=== PATIENT | male | born 1955 ===

== ENCOUNTER 2021-05-22 20:53 | Emergency (ER) | payer SELFPAY ==
[~2021-05-22] VITALS: Ht 180.3 cm; Wt 86.0 kg
--- NOTE | 2021-05-22 21:03 | NUR ---
PT BIB EMS FOR SWELLING TO HIS RIGHT JAW AND INTO HIS THROAT. PATENT AIRWAY. PT SAYS THE SYMPTOMS STARTED 2 DAYS AGO. HE WENT TO AND WAS GIVEN PREDNISONE AND A DOSE OF AMOX. PT DENIES TRAUMA. RESTING IN [facility]. BLANKET PROVIDED
[2021-05-22] MEDS ORDERED: KETOROLAC 30 MG/1 ML ONE (21:35)
[2021-05-22] MEDS ORDERED: HYDROmorphone 1 MG/ML, 1ML INJ ONE (21:36)
[2021-05-22 22:00] LABS: BASOPHILS % (AUTO) 1 % (0-1); EOSINOPHILS % (AUTO) 2 % (1-7); LYMPHOCYTES % (AUTO) 15 % (22-44); MEAN CORPUSCULAR HEMOGLOBIN 31.7 pg (27.5-34.5); MEAN CORPUSCULAR HGB CONC 34.3 g/dL (33.2-36.2); MEAN PLATELET VOLUME 7.5 fL (7.4-10.4); MONOCYTES % (AUTO) 11 % (2-9); NEUTROPHILS % (AUTO) 72 % (42-75); PLATELET COUNT 233 x10^3/uL (130-400); RED BLOOD COUNT 5.02 x10^6/uL (4.38-5.82); RED CELL DISTRIBUTION WIDTH 14.1 % (9.4-14.8)
[2021-05-22] MEDS ORDERED: HYDROmorphone 1 MG/ML, 1ML INJ IVPush PRN (22:00)
[2021-05-22 22:07] LABS: ALBUMIN 3.5 g/dL (3.4-5.0); ANION GAP 7 mmol/L (5-15); CALCIUM 8.8 mg/dL (8.5-10.1); CHLORIDE 107 mmol/L (98-107); CREATININE 0.82 mg/dL (0.7-1.3)
[2021-05-22] MEDS ORDERED: SODIUM CHLORIDE FLUSH 10ML SYR IVF ONE (22:30)
[2021-05-22] MEDS ORDERED: KETOROLAC 30 MG/1 ML IVPush ONE (22:30)
--- NOTE | 2021-05-22 22:55 | NUR ---
REPORT RECIEVED FROM PETEY ISABEL. PT STACIE IN [facility], NO S/S OF DISTRESS
[2021-05-23 01:07] VITALS: BP 111/64
[2021-05-23] MEDS ORDERED: OMNIPAQUE 350 MG/ML, 100ML BOTTLE ONE (01:27)
[2021-05-23] MEDS ORDERED: OXYcodone/APAP 5/325MG TABLET ONE (01:44)
[2021-05-23] MEDS ORDERED: OXYcodone/APAP 5/325MG TABLET PO ONE (02:00)
== END 2021-05-23 02:15 | disposition home or self-care (01) ==
LOC: ED 23:00
DX: M26.621 Arthralgia of right temporomandibular joint (principal); R51.9 Headache, unspecified
CPT/HCPCS: 36415; 70486; 70487; 70491; 80048; 82040; 85025; 96374; 96375; 99285; J1170; J1885; Q9967